=== PATIENT | female | born 1960 | race Hispanic/Latino ===

== ENCOUNTER 2020-01-08 08:13 | Inpatient (IN) | payer OTHER ==
[2020-01-08 02:15] LABS: Hematocrit 38.4 % (30.3-42.9); Hemoglobin 13.2 gm/dl (10.1-14.3); Mean Corpuscular HGB Conc 34 % (30-34); Mean Corpuscular Volume 86 fl (79-97); Platelet Count 216 K/mm3 (140-440); Red Blood Count 4.46 M/mm3 (3.65-5.03); Red Cell Distribution Width 12.6 % (13.2-15.2)
[2020-01-08 02:20] LABS: Alanine Aminotransferase 14 units/L (7-56); Albumin 4.6 g/dL (3.9-5); BUN/Creatinine Ratio 19; Blood Urea Nitrogen 15 mg/dL (7-17); Calcium 9.4 mg/dL (8.4-10.2); Hemolysis Index 0
[2020-01-08 02:31] LABS: Basophils # (Auto) 0.1 K/mm3 (0.0-0.1); Basophils % (Auto) 0.6 % (0.0-1.8); Eosinophils % (Auto) 0.1 % (0.0-4.3); Lymphocytes # (Auto) 0.7 K/mm3 (1.2-5.4); Lymphocytes % (Auto) 4.9 % (13.4-35.0); Monocytes # (Auto) 0.4 K/mm3 (0.0-0.8); Monocytes % (Auto) 3.1 % (0.0-7.3)
[2020-01-08 02:44] LABS: Bilirubin,Urine NEG (Negative); Blood,Urine NEG (Negative); Color,Urine Yellow (Yellow); Mucus,Urine FEW /HPF; Protein,Urine <15 mg/dL mg/dL (Negative); Urobilinogen,Urine < 2.0 mg/dL (<2.0); WBC,Urine < 1.0 /HPF (0.0-6.0)
--- NOTE | 2020-01-08 03:54 | Emergency Department Report ---
ED Abdominal Pain HPI - General Chief Complaint: Abdominal Pain Stated Complaint: ABD PAIN NAUSEA Time Seen by Provider: 01/08/20 02:20 Source: patient Mode of arrival: Ambulatory Limitations: No Limitations - History of Present Illness Initial Comments: 59-year-old female patient without significant past medical history presents with complaints of sudden onset of right lower abdominal pain and nausea and vomiting x last night. Patient states she last ate around 6:30 PM and had immediate vomiting. She denies any hematemesis/coffee-ground emesis, diarrhea, constipation, hematochezia/melena, chest pain, or shortness of breath. She states the pain comes in waves and has been intermittent for a few months now. She does admit to surgical history of 2 C-sections and gallbladder removal. Patient states she is still having bowel movements and passing gas. She admits to some chills, however she is unsure of fever. Severity scale (0 -10): 8 - Related Data Allergies Allergy/AdvReac Type Severity Reaction Status Date / Time No Known Allergies Allergy Verified 01/08/20 05:32 ED Review of Systems ROS: Stated complaint: ABD PAIN NAUSEA Other details as noted in HPI Constitutional: chills. denies: diaphoresis, fever, malaise, weakness ENT: denies: epistaxis Respiratory: denies: cough Cardiovascular: denies: chest pain Gastrointestinal: abdominal pain, nausea, vomiting. denies: diarrhea, con stipation, hematemesis, melena, hematochezia Genitourinary: denies: urgency, dysuria, frequency, hematuria, discharge, abnormal menses, dyspareunia Neurological: denies: headache ED Past Medical Hx - Past Medical History Previous Medical History?: No - Surgical History Past Surgical History?: Yes Additional Surgical History: Hysterectomy. X 2 - Social History Smoking Status: Never Smoker Substance Use Type: None ED Physical Exam - General Limitations: No Limitations General appearance: alert, in no apparent distress - Head Head exam: Present: atraumatic, normocephalic - Eye Eye exam: Present: normal appearance - ENT ENT exam: Present: mucous membranes moist - Neck Neck exam: Present: normal inspection, full ROM - Respiratory Respiratory exam: Present: normal lung sounds bilaterally. Absent: respiratory distress - Cardiovascular Cardiovascular Exam: Present: regular rate, normal rhythm. Absent: systolic mu rmur, diastolic murmur, rubs, gallop - GI/Abdominal GI/Abdominal exam: Present: soft, tenderness (RLQ, suprapubic), normal bowel sounds. Absent: distended, rigid - Extremities Exam Extremities exam: Present: normal inspection - Back Exam Back exam: Present: normal inspection - Neurological Exam Neurological exam: Present: alert, oriented X3 - Psychiatric Psychiatric exam: Present: normal affect, normal mood - Skin Skin exam: Present: warm, dry, intact, normal color. Absent: rash ED Course Vital Signs 01/08/20 01/08/20 01/08/20 01:51 03:48 05:05 Temperature 98.9 F 100.1 F H 100.4 F H Pulse Rate 82 96 H Respiratory 18 17 Rate Blood Pressure 132/81 122/67 [Left] Blood Pressure [Right] O2 Sat by Pulse 97 97 Oximetry 01/08/20 06:16 Temperature 99.8 F H Pulse Rate 94 H Respiratory 17 Rate Blood Pressure [Left] Blood Pressure 116/76 [Right] O2 Sat by Pulse 97 Oximetry ED Medical Decision Making - Lab Data Result diagrams: 01/08/20 01:52 01/08/20 01:52 Lab Results 01/08/20 01/08/20 01/08/20 Range/Units 01:52 01:52 01:56 WBC 13.9 H (4.5-11.0) K/mm3 RBC 4.46 (3.65-5.03) M/mm3 Hgb 13.2 (10.1-14.3) gm/dl Hct 38.4 (30.3-42.9) % MCV 86 (79-97) fl MCH 30 (28-32) pg MCHC 34 (30-34) % RDW 12.6 L (13.2-15.2) % Plt Count 216 (140-440) K/mm3 Lymph % (Auto) 4.9 L (13.4-35.0) % [place] % (Auto) 3.1 (0.0-7.3) % Eos % (Auto) 0.1 (0.0-4.3) % Baso % (Auto) 0.6 (0.0-1.8) % Lymph # (Auto) 0.7 L (1.2-5.4) K/mm3 [place] # (Auto) 0.4 (0.0-0.8) K/mm3 Eos # (Auto) 0.0 (0.0-0.4) K/mm3 Baso # (Auto) 0.1 (0.0-0.1) K/mm3 Seg Neutrophils % Microarray Specialist Seg Neutrophils # 12.7 H (1.8-7.7) K/mm3 Sodium 139 (137-145) mmol/L Potassium 4.3 (3.6-5.0) mmol/L Chloride 99.5 (98-107) mmol/L Carbon Dioxide 27 (22-30) mmol/L Anion Gap 17 mmol/L BUN 15 (7-17) mg/dL Creatinine 0.8 (0.6-1.2) mg/dL Estimated GFR > 60 ml/min BUN/Creatinine Ratio 19 % Glucose 155 H (65-100) mg/dL Lactic Acid (0.7-2.0) mmol/L Calcium 9.4 (8.4-10.2) mg/dL Total Bilirubin 0.80 (0.1-1.2) mg/dL AST 19 (5-40) units/L ALT 14 (7-56) units/L Alkaline Phosphatase 71 (35-129) units/L Total Protein 7.6 (6.3-8.2) g/dL Albumin 4.6 (3.9-5) g/dL Albumin/Globulin Ratio 1.5 % Lipase 15 (13-60) units/L Urine Color Yellow (Yellow) Urine Turbidity Clear (Clear) Urine pH 7.0 (5.0-7.0) Ur Specific [place] 1.021 (1.003-1.030) Urine Protein <15 mg/dl (Negative) mg/dL Urine Glucose (UA) Neg (Negative) mg/dL Urine Ketones 20 (Negative) mg/dL Urine Blood Neg (Negative) Urine Nitrite Neg (Negative) Urine Bilirubin Neg (Negative) Urine Urobilinogen < 2.0 (<2.0) mg/dL Ur Leukocyte Esterase Neg (Negative) Urine WBC (Auto) < 1.0 (0.0-6.0) /HPF Urine RBC (Auto) 3.0 (0.0-6.0) /HPF U Epithel Cells (Auto) 5.0 (0-13.0) /HPF Urine Mucus Few /HPF 01/07/ Range/Units 04:01 WBC (4.5-11.0) K/mm3 RBC (3.65-5.03) M/mm3 Hgb (10.1-14.3) gm/dl Hct (30.3-42.9) % MCV (79-97) fl MCH (28-32) pg MCHC (30-34) % RDW (13.2-15.2) % Plt Count (140-440) K/mm3 Lymph % (Auto) (13.4-35.0) % [place] % (Auto) (0.0-7.3) % Eos % (Auto) (0.0-4.3) % Baso % (Auto) (0.0-1.8) % Lymph # (Auto) (1.2-5.4) K/mm3 [place] # (Auto) (0.0-0.8) K/mm3 Eos # (Auto) (0.0-0.4) K/mm3 Baso # (Auto) (0.0-0.1) K/mm3 Seg Neutrophils % Seg Neutrophils # (1.8-7.7) K/mm3 Sodium (137-145) mmol/L Potassium (3.6-5.0) mmol/L Chloride (98-107) mmol/L Carbon Dioxide (22-30) mmol/L Anion Gap mmol/L BUN (7-17) mg/dL Creatinine (0.6-1.2) mg/dL Estimated GFR ml/min BUN/Creatinine Ratio % Glucose (65-100) mg/dL Lactic Acid 2.00 (0.7-2.0) mmol/L Calcium (8.4-10.2) mg/dL Total Bilirubin (0.1-1.2) mg/dL AST (5-40) units/L ALT (7-56) units/L Alkaline Phosphatase (35-129) units/L Total Protein (6.3-8.2) g/dL Albumin (3.9-5) g/dL Albumin/Globulin Ratio % Lipase (13-60) units/L Urine Color (Yellow) Urine Turbidity (Clear) Urine pH (5.0-7.0) Ur Specific [place] (1.003-1.030) Urine Protein (Negative) mg/dL Urine Glucose (UA) (Negative) mg/dL Urine Ketones (Negative) mg/dL Urine Blood (Negative) Urine Nitrite (Negative) Urine Bilirubin (Negative) Urine Urobilinogen (<2.0) mg/dL Ur Leukocyte Esterase (Negative) Urine WBC (Auto) (0.0-6.0) /HPF Urine RBC (Auto) (0.0-6.0) /HPF U Epithel Cells (Auto) (0-13.0) /HPF Urine Mucus /HPF - Radiology Data Radiology results: report reviewed CT ABDOMEN AND PELVIS WITH CONTRAST INDICATION: Right lower quadrant pain. TECHNIQUE: Axial CT images were obtained through the abdomen and pelvis after 100 cc IV con trast. All CT scans at this location are performed using CT dose reduction for ALARA by means of automated ex posure control. COMPARISON: None available. FINDINGS: LOWER CHEST: No significant abnormality. LIVER: Moderate decreased attenuation characteristic for steatosis GALLBLADDER: Surgically absent BILE DUCTS: No significant abnormality. PANCREAS: No significant abnormality. SPLEEN: No significant abnormality. ADRENALS: No significant abnormality. RIGHT KIDNEY and URETER: No significant abnormality. LEFT KIDNEY and URETER: No significant abnormality. STOMACH and SMALL BOWEL: No significant abnormality. COLON: No significant abnormality. APPENDIX: Dilated 1 cm fluid-filled appendix with enhancing mucosa and periappendiceal inflammation PERITONEUM: No free fluid. No free air. No fluid collection. LYMPH NODES: No significant adenopathy. AORTA and ARTERIES: No significant abnormality. IVC and VEINS: No significant abnormality. URINARY BLADDER: No significant abnormality. REPRODUCTIVE ORGANS: No significant abnormality. ADDITIONAL FINDINGS: None. SKELETAL SYSTEM: No significant abnormality. IMPRESSION: 1. Moderate acute appendicitis. - Medical Decision Making 59-year-old female patient without significant past medical history presents with complaints of sudden onset of right lower abdominal pain and nausea and vomiting x last night. Patient states she last ate around 6:30 PM and had immediate vomiting. She denies any hematemesis/coffee-ground emesis, diarrhea, constipation, hematochezia/melena, chest pain, or shortness of breath. She states the pain comes in waves and has been intermittent for a few months now. She does admit to surgical history of 2 C-sections and gallbladder removal. Patient states she is still having bowel movements and passing gas. She admits to some chills, however she is unsure of fever. McBurney point tenderness noted on exam. White count on CBC noted to be 13.9. Patient has a low-grade fever of 100.4. CT abdomen shows moderate acute appendicitis. Discussed patient with Dr. Bermeo, general surgery-agrees with admission for appendectomy. Patient given loading dose of Zosyn 4.5 g and placed on Zosyn 3.5 g every 6 hour. She is n.p.o. since 6:30 PM 01/07/20. Pain is currently controlled with morphine. Patient to be admitted via hospital medicine-discussed with Dr. Archuleta Critical care attestation.: If time is entered above; I have spent that time in minutes in the direct care of this critically ill patient, excluding procedure time. ED Disposition Clinical Impression: Acute appendicitis Qualifiers: Acute appendicitis type: other Qualified Code(s): K35.890 - Other acute appendicitis without perforation or gangrene Disposition: OP ADMIT IP TO THIS HOSP Is pt being admited?: Yes Condition: Stable Instructions: Abdominal Pain (ED)
--- NOTE | 2020-01-08 05:07 | Cat Scan Report ---
CT ABDOMEN AND PELVIS WITH CONTRAST INDICATION: Right lower quadrant pain. TECHNIQUE: Axial CT images were obtained through the abdomen and pelvis after 100 cc IV contrast. All CT scans at this location are performed using CT dose reduction for ALARA by means of automated exposure contr ol. COMPARISON: None available. FINDINGS: LOWER CHEST: No significant abnormality. LIVER: Moderate decreased attenuation characteristic for steatosis GALLBLADDER: Surgically absent BILE DUCTS: No significant abnormality. PANCREAS: No significant abnormality. SPLEEN: No significant abnormality. ADRENALS: No significant abnormality. RIGHT KIDNEY and URETER: No significant abnormality. LEFT KIDNEY and URETER: No significant abnormality. STOMACH and SMALL BOWEL: No significant abnormality. COLON: No significant abnormality. APPENDIX: Dilated 1 cm fluid-filled appendix with enhancing mucosa and periappendiceal inflammation PERITONEUM: No free fluid. No free air. No fluid collection. LYMPH NODES: No significant adenopathy. AORTA and ARTERIES: No significant abnormality. IVC and VEINS: No significant abnormality. URINARY BLADDER: No significant abnormality. REPRODUCTIVE ORGANS: No significant abnormality. ADDITIONAL FINDINGS: None. SKELETAL SYSTEM: No significant abnormality. IMPRESSION: 1. Moderate acute appendicitis. Signer Name: Santos Downing MD Signed: 01/08/2020 5:03 AM Workstation Name: [id number]
--- NOTE | 2020-01-08 05:39 | Consultation ---
History of Present Illness - Reason for Consult Consult date: 01/08/20 abd pain - History of Present Illness This is a 59 year old female with a 12-24 hour of abd pain, WBC 13.9 K , CT abd pelvis positive for acute appendicitis. Past History Past Medical History: cancer Past Surgical History: No surgical history Social history: no significant social history Family history: no significant family history Medications and Allergies Allergies Allergy/AdvReac Type Severity Reaction Status Date / Time No Known Allergies Allergy Verified 01/08/20 05:32 Active Meds: Active Medications Piperacillin Sod/Tazobactam Sod (Zosyn/Ns 4.5gm/100ml) 4.5 gm in 100 mls @ 200 mls/hr IV ONCE ONE; Protocol Stop: 01/08/20 05:56 Piperacillin Sod/Tazobactam Sod (Zosyn/Ns 3.375gm/50ml) 3.375 gm in 50 mls @ 100 mls/hr IV Q6H ALDO; Protocol Review of Systems Constitutional: other (abd pain) Exam - Physical Exam Narrative exam: see ER doc's P exam - Constitutional Vitals: Temp Pulse Resp BP Pulse Ox 100.4 F H 96 H 17 122/67 97 01/08/20 05:05 01/08/20 03:48 01/08/20 03:48 01/08/20 03:48 01/08/20 03:48 Results - Labs CBC & Chem 7: 01/08/20 01:52 01/08/20 01:52 Labs: Abnormal lab results 01/08/20 01/08/20 Range/Units 01:52 01:52 WBC 13.9 H (4.5-11.0) K/mm3 RDW 12.6 L (13.2-15.2) % Lymph % (Auto) 4.9 L (13.4-35.0) % Lymph # (Auto) 0.7 L (1.2-5.4) K/mm3 Seg Neutrophils # 12.7 H (1.8-7.7) K/mm3 Glucose 155 H (65-100) mg/dL Assessment and Plan Acute appendicitis- admit, NPO, iv fluids and iv zosyn, pain control. Lap appendectomy
[~2020-01-08 08:13] MED LIST: ACETAMINOPHEN 650 MG RECT SUPP PR ONE; HYDROmorphone 1 MG/1 ML INJ IV PRN; LACTATED RINGERS 1,000 ML IV SCH; MIDAZOLAM 2 MG/2 ML INJ IV NR; MORPHINE 4 MG/1 ML INJ IV ONE; MORPHINE 4 MG/1 ML INJ IV PRN; ONDANSETRON 4 MG/2 ML INJ IV ONE; ONDANSETRON 4 MG/2 ML INJ IV PRN; PIPERACIL/TAZOBACTA 4.5/NS 100 4.5 GM/100 ML VIAL IV ONE; SCOPOLAMINE TRANSDERMAL PATCH 72 HR TD ONE; SODIUM CHLORIDE 0.9% 1000 ML 1,000 ML IV ONE
--- NOTE | 2020-01-08 08:26 | Anesthesia Consultation ---
Anesthesia Consult and Med Hx Date of service: 01/08/20 - Airway Anesthetic Teeth Evaluation: Good ROM Head & Neck: Adequate Mental/Hyoid Distance: Adequate Mallampati Class: Class III Intubation Access Assessment: Possibly Difficult - Pulmonary Exam CTA: Yes - Cardiac Exam Cardiac Exam: RRR - Pre-Operative Health Status ASA Pre-Surgery Classification: ASA2 Proposed Anesthetic Plan: General - Pulmonary Hx Smoking: Yes (former smoker) Hx Respiratory Symptoms: No - Cardiovascular System Hx Hypertension: No Hx Heart Attack/AMI: No Hx Percutaneous Transluminal Coronary Angioplasty (PTCA): No Hx Cardia Arrhythmia: No - Central Nervous System CVA: No - Gastrointestinal Hx Gastroesophageal Reflux Disease: No - Endocrine Hx Renal Disease: No Hx Liver Disease: No Hx Insulin Dependent Diabetes: No Hx Non-Insulin Dependent Diabetes: No Hx Thyroid Disease: No - Hematic Hx Anemia: No - Other Systems Hx Substance Use: No Hx Obesity: Yes (BMI 32) - Additional Comments Anesthesia Medical History Comments: Hx PONV. Scheduled lap appy.
--- NOTE | 2020-01-08 08:26 | History and Physical Report ---
History of Present Illness Date of examination: 01/08/20 Date of admission: 01/07/2002 Chief complaint: Right lower quadrant pain right-sided abdominal pain. History of present illness: 59-year-old presents with right lower quadrant pain associated with nausea and vomiting. Patient describes pain is sharp intermittent no alleviating or aggravating symptoms. Has been progressively worsening over the past 2 months. No fever. Present nausea no vomiting. Work-up in ED via CT scan revealed acute appendicitis. Patient presently scheduled for surgical intervention. Past History Past Medical History: cancer Past Surgical History: No surgical history Social history: no significant social history Family history: no significant family history Medications and Allergies Allergies Allergy/AdvReac Type Severity Reaction Status Date / Time No Known Allergies Allergy Verified 01/08/20 05:32 Active Meds: Active Medications Hydromorphone HCl (Dilaudid) 0.5 mg IV Q10MIN PRN PRN Reason: Pain , Severe (7-10) Stop: 01/08/20 17:00 Piperacillin Sod/Tazobactam Sod (Zosyn/Ns 4.5gm/100ml) 4.5 gm in 100 mls @ 200 mls/hr IV Q8HR ALDO; Protocol Lactated Ringer's (Lactated Ringers) 1,000 mls @ 100 mls/hr IV DIRECT ALDO Midazolam HCl (Versed) 2 mg IV PREOP NR Stop: 01/08/20 23:59 Morphine Sulfate (Morphine) 4 mg IV Q4H PRN PRN Reason: pain Last Admin: 01/08/20 07:39 Dose: 4 mg Documented by: Ondansetron HCl (Zofran) 4 mg IV ONCE PRN PRN Reason: Nausea And Vomiting Review of Systems Constitutional: sweats, malaise, lethargy, poor appetite, no weight loss, no weight gain, no chills, no night sweats, no anorexia, no fatigue, no weakness, no chronic headaches, no daytime sleepiness, no chronic pain Ears, nose, mouth and throat: no tinnitis, no nose pain, no dysphagia, no sore throat, no swelling in mouth, no post-nasal drip, no headache, no pain front of neck, no neck lump Cardiovascular: no orthopnea, no rapid/irregular heart beat, no shortness of breath, no paroxysmal nocturnal dyspnea, no leg edema Respiratory: no cough, no excessive sputum, no hemoptysis, no congestion, no wheezing, no pain on inspiration, no respiratory infections, no other Gastrointestinal: abdominal pain, nausea, change in bowel habits, loss of appetite, heartburn, indigestion, no diarrhea, no constipation, no hematemesis, no coffee ground emesis, no BRBPR, no melena, no hematochezia, no belching, no jaundice, no early satiety, no lactose intolerance, no other Genitourinary Female: no flank pain, no dysuria, no mixed incontinence, no hematuria, no vaginal itching Rectal: no bleeding Musculoskeletal: no neck pain, no shooting arm pain, no shooting leg pain, no morning stiffness, no muscle cramps, no gait dysfunction, no fractures Integumentary: no rash, no sores, no unusual bruising, no brittle nails, no striae Neurological: no paralysis, no tingling, no convulsions, no change in speech, no motor disturbance, no hearing difficulties Psychiatric: no anxiety, no memory loss, no paranoia Endocrine: no cold intolerance, no excessive sweating, no flushing, no weight change, no other Hematologic/Lymphatic: no easy bruising, no lymphadenopathy Allergic/Immunologic: no allergic rhinitis, no gluten intolerance Exam - Constitutional Vitals: Temp Pulse Resp BP Pulse Ox 99.8 F H 94 H 17 116/76 97 01/08/20 06:16 01/08/20 06:16 01/08/20 06:16 01/08/20 06:16 01/08/20 06:16 General appearance: Present: no acute distress, well-nourished - EENT Eyes: Present: PERRL ENT: hearing intact, clear oral mucosa - Neck Neck: Present: supple, normal ROM - Respiratory Respiratory effort: normal Respiratory: bilateral: CTA - Cardiovascular Heart Sounds: Present: S1 & S2. Absent: rub, click - Extremities Extremities: pulses symmetrical, No edema Peripheral Pulses: within normal limits - Abdominal General gastrointestinal: Present: tender, hypoactive bowel sounds, other (Right lower quadrant pain. Tender guarding) Female genitourinary: Present: normal - Integumentary Integumentary: Present: clear, warm, dry - Musculoskeletal Musculoskeletal: gait normal, strength equal bilaterally - Psychiatric Psychiatric: appropriate mood/affect, intact judgment & insight - Neurologic Neurologic: CNII-XII intact, moves all extremities Results - Labs CBC & Chem 7: 01/08/20 01:52 01/08/20 01:52 Labs: Laboratory Last Values WBC 13.9 K/mm3 (4.5-11.0) H 01/08/20 01:52 RBC 4.46 M/mm3 (3.65-5.03) 01/08/20 01:52 Hgb 13.2 gm/dl (10.1-14.3) 01/08/20 01:52 Hct 38.4 % (30.3-42.9) 01/08/20 01:52 MCV 86 fl (79-97) 01/08/20 01:52 MCH 30 pg (28-32) 01/08/20 01:52 MCHC 34 % (30-34) 01/08/20 01:52 RDW 12.6 % (13.2-15.2) L 01/08/20 01:52 Plt Count 216 K/mm3 (140-440) 01/08/20 01:52 Lymph % (Auto) 4.9 % (13.4-35.0) L 01/08/20 01:52 [place] % (Auto) 3.1 % (0.0-7.3) 01/08/20 01:52 Eos % (Auto) 0.1 % (0.0-4.3) 01/08/20 01:52 Baso % (Auto) 0.6 % (0.0-1.8) 01/08/20 01:52 Lymph # (Auto) 0.7 K/mm3 (1.2-5.4) L 01/08/20 01:52 [place] # (Auto) 0.4 K/mm3 (0.0-0.8) 01/08/20 01:52 Eos # (Auto) 0.0 K/mm3 (0.0-0.4) 01/08/20 01:52 Baso # (Auto) 0.1 K/mm3 (0.0-0.1) 01/08/20 01:52 Seg Neutrophils % Systems Navigator 01/08/20 01:52 Seg Neutrophils # 12.7 K/mm3 (1.8-7.7) H 01/08/20 01:52 Sodium 139 mmol/L (137-145) 01/08/20 01:52 Potassium 4.3 mmol/L (3.6-5.0) 01/08/20 01:52 Chloride 99.5 mmol/L (98-107) 01/08/20 01:52 Carbon Dioxide 27 mmol/L (22-30) 01/08/20 01:52 Anion Gap 17 mmol/L 01/08/20 01:52 BUN 15 mg/dL (7-17) 01/08/20 01:52 Creatinine 0.8 mg/dL (0.6-1.2) 01/08/20 01:52 Estimated GFR > 60 ml/min 01/08/20 01:52 BUN/Creatinine Ratio 19 % 01/08/20 01:52 Glucose 155 mg/dL (65-100) H 01/08/20 01:52 Lactic Acid 2.00 mmol/L (0.7-2.0) 01/08/20 04:01 Calcium 9.4 mg/dL (8.4-10.2) 01/08/20 01:52 Total Bilirubin 0.80 mg/dL (0.1-1.2) 01/08/20 01:52 AST 19 units/L (5-40) 01/08/20 01:52 ALT 14 units/L (7-56) 01/08/20 01:52 Alkaline Phosphatase 71 units/L (35-129) 01/08/20 01:52 Total Protein 7.6 g/dL (6.3-8.2) 01/08/20 01:52 Albumin 4.6 g/dL (3.9-5) 01/08/20 01:52 Albumin/Globulin Ratio 1.5 % 01/08/20 01:52 Lipase 15 units/L (13-60) 01/08/20 01:52 Urine Color Yellow (Yellow) 01/08/20 01:56 Urine Turbidity Clear (Clear) 01/08/20 01:56 Urine pH 7.0 (5.0-7.0) 01/08/20 01:56 Ur Specific [place] 1.021 (1.003-1.030) 01/08/20 01:56 Urine Protein <15 mg/dl mg/dL (Negative) 01/08/20 01:56 Urine Glucose (UA) Neg mg/dL (Negative) 01/08/20 01:56 Urine Ketones 20 mg/dL (Negative) 01/08/20 01:56 Urine Blood Neg (Negative) 01/08/20 01:56 Urine Nitrite Neg (Negative) 01/08/20 01:56 Urine Bilirubin Neg (Negative) 01/08/20 01:56 Urine Urobilinogen < 2.0 mg/dL (<2.0) 01/08/20 01:56 Ur Leukocyte Esterase Neg (Negative) 01/08/20 01:56 Urine WBC (Auto) < 1.0 /HPF (0.0-6.0) 01/08/20 01:56 Urine RBC (Auto) 3.0 /HPF (0.0-6.0) 01/08/20 01:56 U Epithel Cells (Auto) 5.0 /HPF (0-13.0) 01/08/20 01:56 Urine Mucus Few /HPF 01/08/20 01:56 Microbiology: Microbiology 01/08/20 04:30 Peripheral/Venous Blood Culture - Preliminary Culture in Progress 01/08/20 04:01 Peripheral/Venous Blood Culture - Preliminary Culture in Progress George/IV: IV Catheter Type [Right INT / Saline Lock Antecubital] Assessment and Plan Advance Directives: Yes Plan of care discussed with patient/family: Yes - Patient Problems (1) Acute appendicitis Current Visit: Yes Status: Acute Qualifiers: Acute appendicitis type: other Qualified Code(s): K35.890 - Other acute appendicitis without perforation or gangrene; K35.89 - Other acute appendicitis Plan to address problem: Patient with acute appendicitis. Scheduled for surgical intervention. Pain control changed to morphine. Aggressive IV hydration. Zosyn for empiric antibiotic coverage.
--- NOTE | 2020-01-08 08:27 | Anesthesia Day of Surgery ---
Anesthesia Day of Surgery - Day of Surgery Patient Examined: Yes Patient H&P Reviewed: Yes Patient is NPO: Yes
[2020-01-08] MEDS ORDERED: LIDOCAINE (1%) 10 MG/1 ML VIAL 20 ML MDV ONE (08:38)
[2020-01-08] MEDS ORDERED: BUPIVACAINE/PF (0.5%) 5 MG/1 ML 30 ML VIAL INFILTRATI ONE ×2 (08:38→09:53)
[2020-01-08] MEDS ORDERED: fentaNYL 100 MCG/2 ML INJ ONE (08:41)
[2020-01-08] MEDS ORDERED: LIDOCAINE MPF (2%) 20 MG/1 ML VIAL 5 ML ONE (08:41)
[2020-01-08] MEDS ORDERED: propofoL 200 MG/20 ML VIAL IV ONE (08:41)
[2020-01-08] MEDS ORDERED: SUCCINYLCHOLINE CHLORIDE 200 MG/10 ML INJ MDV ONE (08:41)
[2020-01-08] MEDS ORDERED: ROCURONIUM 50 MG/5 ML INJ IV ONE (08:41)
[2020-01-08] MEDS ORDERED: ceFAZolin/Water 2 GM/20 ML 2 GM/20 ML SYRINGE IV ONE (08:47)
[2020-01-08] MEDS ORDERED: SODIUM CHLORIDE 0.9% 1000 ML 1,000 ML IV SCH (09:00)
[2020-01-08] MEDS ORDERED: HYDROmorphone 1 MG/1 ML INJ IV PRN (09:00)
[2020-01-08] MEDS ORDERED: NALOXONE 0.4 MG/1 ML INJ IV PRN (09:00)
[2020-01-08] MEDS ORDERED: dexAMETHasone 20 MG/5 ML VIAL ONE (09:17)
[2020-01-08] MEDS ORDERED: PHENYLEPHRINE/NS 1,000 MCG/10 ML SYRINGE (OR USE) IV ONE (09:17)
[2020-01-08] MEDS ORDERED: LACTATED RINGERS 1,000 ML ONE (09:27)
[2020-01-08] MEDS ORDERED: ePHEDrine SULFATE 50 MG/1 ML INJ ONE (09:32)
[2020-01-08] MEDS ORDERED: EPINEPHrine 1 MG/10 ML SYRINGE ONE (09:32)
[2020-01-08] MEDS ORDERED: HYDROmorphone 1 MG/1 ML INJ ONE ×2 (09:44→15:02)
[2020-01-08] MEDS ORDERED: SODIUM CHLORIDE 0.9% 1000 ML IV SOLN IR ONE (09:53)
[2020-01-08] MEDS ORDERED: LIDOCAINE (1%) 10 MG/1 ML VIAL 20 ML MDV INFILTRATI ONE (09:53)
[2020-01-08] MEDS ORDERED: SODIUM CHLORIDE 0.9% IRRIG SOLN 2000 ML IR ONE (09:54)
[2020-01-08] MEDS ORDERED: KETOROLAC 30 MG/1 ML INJ ONE (09:56)
[2020-01-08] MEDS ORDERED: PHENYLEPHRINE 10 MG/1 ML INJ SDV ONE (09:57)
[2020-01-08] MEDS ORDERED: GLYCOPYRROLATE 0.4 MG/2 ML INJ ONE (09:57)
[2020-01-08] MEDS ORDERED: MAGNESIUM HYDROXIDE (MOM) ORAL LIQD UDC PO PRN (10:00)
[2020-01-08] MEDS ORDERED: FAMOTIDINE 20 MG/2 ML INJ IV SCH (10:00)
[2020-01-08] MEDS ORDERED: ACETAMINOPHEN 325 MG TAB PO PRN (10:00)
[2020-01-08] MEDS ORDERED: ONDANSETRON 4 MG/2 ML INJ ONE (10:01)
--- NOTE | 2020-01-08 10:25 | Operative Report ---
Operative Report Operative Report: preop dx- acute appendicitis Postop dx- acute gangrenous appendicitis Procedure- Laparoscopic appendectomy Surgeon Lorie Gay M.D. Op findings gangrenous appendicitis, no perforation, no abcess EBL- minimal GETA
[2020-01-08] MEDS ORDERED: SODIUM CHLORIDE 0.9% 1000 ML 1,000 ML ONE ×4 (11:07→15:07)
--- NOTE | 2020-01-08 11:37 | Post Anesthesia Evaluation ---
- Post Anesthesia Evaluation Patient Participated: Yes Airway Patent: Yes Stable Respiratory Function: Yes Nausea/Vomiting: No Temp > 96.8F: Yes Pain Manageable: Yes Adequeate Hydration: Yes Anesthesia Complications: No
[2020-01-08] MEDS ORDERED: PIPERACILLIN/TAZOBACTAM 3.375 3.375 GM/50 ML BAG IV SCH ×3 (12:00→16:00)
[2020-01-08] MEDS ORDERED: PIPERACIL/TAZOBACTA 4.5/NS 100 4.5 GM/100 ML VIAL IV SCH ×2 (14:00→22:00)
[2020-01-08] MEDS ORDERED: ONDANSETRON 4 MG/2 ML INJ IV PRN (14:00)
[2020-01-08] MEDS ORDERED: oxyCODONE /ACETAMINOPHEN 5-325MG TAB ONE ×2 (14:58→19:04)
[2020-01-08] MEDS: PIPERACILLIN/TAZOBACTAM 3.375 3.375 GM/50 ML BAG IV SCH ×2 (16:38→23:20)
[2020-01-08] MEDS: oxyCODONE /ACETAMINOPHEN 5-325MG TAB PO PRN (19:04)
[2020-01-08] MEDS: IPRATROPIUM/ALBUTEROL SULFATE 3 ML AMPUL.NEB IH SCH (23:28)
[2020-01-09] MEDS: IPRATROPIUM/ALBUTEROL SULFATE 3 ML AMPUL.NEB IH SCH ×2 (05:16→11:10)
[2020-01-09] MEDS: PIPERACILLIN/TAZOBACTAM 3.375 3.375 GM/50 ML BAG IV SCH (05:54)
[2020-01-09] MEDS: oxyCODONE /ACETAMINOPHEN 5-325MG TAB PO PRN ×2 (06:01→12:44)
[2020-01-09 06:02] LABS: Basophils % (Auto) 0.1 % (0.0-1.8); Hematocrit 30.5 % (30.3-42.9); Hemoglobin 10.3 gm/dl (10.1-14.3); Lymphocytes # (Auto) 1.1 K/mm3 (1.2-5.4); Lymphocytes % (Auto) 11.4 % (13.4-35.0); Mean Corpuscular HGB Conc 34 % (30-34); Mean Corpuscular Volume 88 fl (79-97); Monocytes # (Auto) 0.5 K/mm3 (0.0-0.8); Monocytes % (Auto) 5.7 % (0.0-7.3); Platelet Count 143 K/mm3 (140-440); Red Blood Count 3.46 M/mm3 (3.65-5.03); Red Cell Distribution Width 12.7 % (13.2-15.2)
[2020-01-09 06:11] LABS: Alanine Aminotransferase 44 units/L (7-56); Albumin 3.2 g/dL (3.9-5); Blood Urea Nitrogen 7 mg/dL (7-17); Hemolysis Index 3
[2020-01-09 06:13] LABS: BUN/Creatinine Ratio 14
--- NOTE | 2020-01-09 07:50 | Progress Note ---
Assessment and Plan s/p lap appendectomy, doing well, labs OK , H and H stable, WBC normal OK to discharge home on oral levaquin or cipro plus flagyll 250mg PO q 8 hrs x 5 days, pain meds I will follow up in my office on Saturday, I gave patient one of my cards and careful instructions on diet, activity and wound care. Subjective Date of service: 01/09/20 Principal diagnosis: s/p lap appendectomy Objective - Constitutional Vitals: Vital Signs - 12hr 01/08/20 01/09/20 01/09/20 20:00 03:13 05:59 Temperature 98 F 98.4 F Pulse Rate 68 63 Respiratory 17 17 16 Rate Blood Pressure 97/51 100/58 [Left] O2 Sat by Pulse 95 97 99 Oximetry 01/09/20 06:01 Temperature Pulse Rate Respiratory 16 Rate Blood Pressure [Left] O2 Sat by Pulse Oximetry General appearance: Present: no acute distress - EENT Eyes: PERRL, EOM intact ENT: hearing intact, clear oral mucosa - Neck Neck: supple, normal ROM - Respiratory Respiratory effort: normal - Breasts Breasts: deferred - Cardiovascular Rhythm: regular Extremities: pulses intact, No edema, normal color, Full ROM - Gastrointestinal General gastrointestinal: Present: soft, non-tender, other (incisions OK) Rectal Exam: deferred - Psychiatric Psychiatric: memory intact, appropriate mood/affect, intact judgment & insight - Labs CBC & Chem 7: 01/09/20 05:22 01/09/20 05:22 Labs: Abnormal lab results 01/09/20 01/09/20 Range/Units 05:22 05:22 RBC 3.46 L (3.65-5.03) M/mm3 RDW 12.7 L (13.2-15.2) % Lymph % (Auto) 11.4 L (13.4-35.0) % Lymph # (Auto) 1.1 L (1.2-5.4) K/mm3 Seg Neutrophils % 82.8 H (40.0-70.0) % Seg Neutrophils # 8.0 H (1.8-7.7) K/mm3 Creatinine 0.5 L (0.6-1.2) mg/dL Glucose 125 H (65-100) mg/dL Calcium 8.0 L (8.4-10.2) mg/dL Total Protein 5.8 L D (6.3-8.2) g/dL Albumin 3.2 L (3.9-5) g/dL Medications & Allergies - Medications Allergies/Adverse Reactions: Allergies No Known Allergies Allergy (Verified 01/08/20 05:32) Active Medications: Generic Name Dose Route Start Last Admin Trade Name Freq PRN Reason Stop Dose Admin Acetaminophen 650 mg 01/08/20 10:00 Tylenol PO Q4HR PRN Pain MILD(1-3)/Fever >100.5/PAREDES Albuterol/Ipratropium 1 ampul 01/08/20 14:00 01/09/20 05:16 Duoneb *Not For Prn Use* IH Not Given Q6HRT ALDO Bisacodyl 10 mg 01/08/20 10:00 Dulcolax DE QDAY PRN Constipation unrelieved by MOM Famotidine 10 mg 01/08/20 10:00 01/08/20 21:47 Pepcid IV 10 mg BID ALDO Administration Sodium Chloride 1,000 mls @ 125 mls/hr 01/08/20 09:00 01/09/20 03:25 Nacl 0.9% 1000 Ml IV 125 mls/hr DIRECT ALDO Administration Piperacillin Sod/Tazobactam Sod 3.375 gm in 50 mls @ 100 mls/hr 01/08/20 16:30 01/09/20 05:54 Zosyn/Ns 3.375gm/50ml IV 01/10/20 16:29 100 mls/hr Q8HR ALDO Administration Protocol Magnesium Hydroxide 30 ml 01/08/20 10:00 Milk Of Magnesia PO Q4HR PRN Constipation Morphine Sulfate 4 mg 01/08/20 06:11 01/08/20 07:39 Morphine IV 4 mg Q4H PRN Administration pain Naloxone HCl 0.1 mg 01/08/20 09:00 Naloxone IV Q2MIN PRN Res Rate </= 8 or 02 SAT < 92% Ondansetron HCl 4 mg 01/08/20 14:00 Zofran IV Q8HR PRN Nausea And Vomiting Oxycodone/Acetaminophen 1 tab 01/08/20 11:00 01/09/20 06:01 Percocet 5/325 PO 1 tab Q4H PRN Administration Pain, Moderate (4-6) Sodium Chloride 10 ml 01/08/20 10:00 01/08/20 21:49 Sodium Chloride Flush Syringe 10 Ml IV 10 ml BID ALDO Administration Sodium Chloride 10 ml 01/08/20 09:00 Sodium Chloride Flush Syringe 10 Ml IV 01/21/20 08:59 PRN PRN LINE FLUSH
--- NOTE | 2020-01-09 08:36 | Discharge Summary ---
Providers - Providers Date of Admission: 01/08/20 08:27 Date of discharge: 01/09/20 Attending physician: EBER GORDILLO 01/08/20 05:26 Consult to Physician [CONS] Stat Comment: Consulting Provider: EBER GORDILLO Physician Instructions: Reason For Exam: Appendicitis Primary care physician: [facility] Hospitalization Condition: Good Hospital course: Patient presented right lower quadrant pain. Work-up in ED CT scan revealed acute appendicitis. Patient underwent surgical intervention with lab appendectomy. Tolerated procedure well. Eating drinking passing gas H&H stable. Patient evaluated by surgical team will start stable for discharge with Levaquin and Flagyl x5 days. Follow-up with surgery on Saturday. Disposition: TO HOME OR SELFCARE - Discharge Diagnoses (1) Acute appendicitis Status: Acute Qualifiers: Acute appendicitis type: other Qualified Code(s): K35.890 - Other acute appendicitis without perforation or gangrene; K35.89 - Other acute appendicitis Comment: Status post surgical intervention. White count normalized H&H stable no fever tolerating p.o. Core Measure Documentation - Palliative Care Palliative Care/ Comfort Measures: Not Applicable - Core Measures Any of the following diagnoses?: none Exam - Constitutional Vitals: Temp Pulse Resp BP Pulse Ox 98.4 F 63 16 100/58 99 01/09/20 05:59 01/09/20 05:59 01/09/20 06:01 01/09/20 05:59 01/09/20 05:59 General appearance: Present: no acute distress, well-nourished - EENT Eyes: Present: PERRL ENT: hearing intact, clear oral mucosa - Neck Neck: Present: supple, normal ROM - Respiratory Respiratory effort: normal Respiratory: bilateral: CTA - Cardiovascular Heart Sounds: Present: S1 & S2. Absent: rub, click - Extremities Extremities: pulses symmetrical, No edema Peripheral Pulses: within normal limits - Abdominal General gastrointestinal: Present: soft, non-tender, non-distended, normal bowel sounds Female genitourinary: Present: normal, other (Right surgical site bandaged.) - Integumentary Integumentary: Present: clear, warm, dry - Musculoskeletal Musculoskeletal: gait normal, strength equal bilaterally - Psychiatric Psychiatric: appropriate mood/affect, intact judgment & insight - Neurologic Neurologic: CNII-XII intact, moves all extremities Plan Activity: no restrictions, advance as tolerated Weight Bearing Status: Weight Bear as Tolerated Diet: low fat Special Instructions: no heavy lifting Follow up with: PRIMARY CARE,MD [Primary Care Provider] - 3-5 Days Prescriptions: metroNIDAZOLE [Flagyl TAB] 500 mg PO BID #14 tablet levoFLOXacin [Levaquin TAB] 500 mg PO Q24HR #7 tablet oxyCODONE /ACETAMINOPHEN [Percocet 5/325 mg] 1 tab PO Q4H PRN #30 tablet PRN Reason: Pain, Moderate (4-6)
[2020-01-09] MEDS ORDERED: levoFLOXacin 500 MG TAB PO SCH (10:00)
[2020-01-09] MEDS ORDERED: metroNIDAZOLE 500 MG TAB PO SCH (10:00)
[2020-01-09 21:34] VITALS: BP 121/57
--- NOTE | 2020-01-11 13:32 | Operative Report ---
PREOPERATIVE DIAGNOSIS: Acute appendicitis, confirmed on CT scan of the abdomen and pelvis. POSTOPERATIVE DIAGNOSIS: Acute gangrenous appendicitis. PROCEDURE: Laparoscopic appendectomy. SURGEON: Maikel Gay MD OPERATIVE FINDINGS: Compatible with gangrenous appendicitis. No perforation, no abscess. Anesthetic- general. BLOOD LOSS: Minimal. SPECIMEN: Consisted of the appendix. DESCRIPTION OF PROCEDURE: After informed consent, the patient received IV antibiotics. She was induced under general anesthesia with compression stockings in place. She was sterilely prepped and draped in a supine position with her left arm tucked for standard laparoscopic appendectomy. I raised a skin wheal in the subumbilical position with 0.5% Marcaine mixed with 1% lidocaine. I made a small incision with a #15 scalpel utilizing Erica technique. I utilized S retractors dissected down to the underlying anterior abdominal fascia. It was elevated between 2 Mamadou clamps and then I made an incision down through both layers of the fascia and elevated the peritoneum with the curved Vines scissors and then I elevated the peritoneum between 2 hemostats and opened the peritoneum. I placed my finger in to ensure there were no loops of bowel just adjacent to the site just below the umbilicus. Then, I inserted the Erica port, blew up the balloon and secured it, attached it to CO2 and insufflated the abdomen to acceptable pressures with CO2. Then, the other two 5 mm ports were placed under direct visualization of a 5 mm 30-degree scope. I placed a 5 mm port in the left mid abdominal wall lateral to the epigastrics and another 5 mm port on the right abdominal wall lateral to the epigastrics and then positioned the patient properly. The findings were compatible with acute appendicitis. It appeared slightly gangrenous. The cecum had some adhesions. These were taken down with the LigaSure device and I mobilized the cecum and then I used a curved [place] retractor and dissected at base of the cecum, flushed with the appendix and dissected away the mesoappendix. I fired 2 applications of the endoluminal stapler with the vascular cartridges. There was excellent hemostasis and there was a nice staple line flushed with the cecum. Then, I removed the appendix in an EndoCatch bag and I washed out locally with [email or web address] irrigation system until it was clear, carefully examined the base of the cecum and there was no bleeding and a nice flushed staple line and then I closed. I used #1 Vicryls to close the umbilical 12 mm port site and then I used a 4-0 Monocryl for the skin with skin glue. The patient was hemodynamically stable throughout the procedure. The blood loss was minimal. The appendix was sent to permanent pathology. The sponge and needle count was correct x 2 at the completion of the procedure. JOB# [id number] [place]
== END 2020-01-09 13:00 | disposition home or self-care (01) | DRG 343 ==
LOC: OR 08:13 → 3A 08:27 → 3B-SURG 19:29
PROVIDERS: ADMIT Internal Medicine; ATTEND Surgery
PROC: 0DTJ4ZZ Resection of Appendix, Percutaneous Endoscopic Approach (ICD-10-PCS; principal; 2020-01-08)
DX: K35.891 Other acute appendicitis without perforation, with gangrene (principal); F17.200 Nicotine dependence, unspecified, uncomplicated; E66.9 Obesity, unspecified; Z68.32 Body mass index [BMI] 32.0-32.9, adult
CPT/HCPCS: 36415; 74177; 80053; 81001; 82140; 83690; 85025; 87040; 88304; 94640; 94760; 96365; 96375; G0378; A4217; J0171; J0330; J0690; J1100; J1170; J1885; J2250; J2270; J2370; J2405; J2543; J2704; J3010; J7030; J7120; Q9967